=== PATIENT | female | born 1965 ===

== ENCOUNTER 2017-11-25 08:14 | Day surgery (SDC) | payer OTHER ==
[~2017-11-25] VITALS: Ht 152.4 cm; Wt 58.5 kg
[2017-11-25 08:58] VITALS: BP 100/63
[2017-11-25 17:13] VITALS: BP 121/63
== END 2017-11-25 17:10 | disposition home or self-care (01) ==
LOC: DS 08:14 → NM 09:00 → OR 12:00 → DS 17:10
PROVIDERS: Surgery
PROC: 0HBU0ZZ Excision of Left Breast, Open Approach (ICD-10-PCS; principal; 2017-11-25 12:00)
DX: C50.412 Malignant neoplasm of upper-outer quadrant of left female breast (principal); Z17.0 Estrogen receptor positive status [ER+]; Z85.3 Personal history of malignant neoplasm of breast; Z90.11 Acquired absence of right breast and nipple; Z92.21 Personal history of antineoplastic chemotherapy; Z92.3 Personal history of irradiation
CPT/HCPCS: 88329; 88344; 88361; J2250; J2270; J2405; J2704; J2765; J3010; J3490; J7120; Q9968